=== PATIENT | female | born 1990 | race Caucasian/White ===

== ENCOUNTER 2017-08-15 12:23 | Emergency (ER) | payer SELFPAY ==
[~2017-08-15] VITALS: Ht 149.9 cm; Wt 90.7 kg
[2017-08-15 13:19] LABS: BILIRUBIN,URINE NEGATIVE (NEGATIVE); KETONES,URINE NEGATIVE (NEGATIVE); LEUKOCYTE ESTERASE ,URINE 1+ (NEGATIVE); NITRITE,URINE NEGATIVE (NEGATIVE); PH,URINE 7 (5-9); PROTEIN,URINE NEGATIVE (NEGATIVE); UROBILINOGEN,URINE NORMAL (NORMAL)
--- NOTE | 2017-08-15 13:29 | ED General ---
General Chief Complaint: Dizziness/Syncope Stated Complaint: DIZZY SPELLS,LINDSEY,FATIGUE Nursing Triage Note: AMB TO ROOM REPORTS SHE HAS BEEN DIZZY FOR 1 WEEK OFF AND ON WITH HEADACHE NO HEADACHE ON ADMIT. Nursing Sepsis Screen: No Definite Risk History of Present Illness Time Seen by Provider: 13:20 Initial Comments Patient reports intermittent dizziness for one week. She states she feels as though the room is spinning around her. She said no previous episodes of this in the past. She denies any ear pain. She's had occasional headaches over the last week but is not having a headache today. They're usually relieved when she takes Aleve. Timing/Duration: 5-6 Days Severity: Mild Associated Systoms: Denies Symptoms Allergies and Home Medications Allergies Coded Allergies: codeine (Verified Allergy, Unknown, 08/15/17) Home Medications No Active Prescriptions or Reported Meds Constitutional: see HPI, dizziness : No (negative hCG, urine) All Other Systems Reviewed Negative Unless Noted: Yes Past Sorbpdu-Cedkth-Qvuyuk Hx Patient Social History Alcohol Use: Denies Use Recreational Drug Use: No Smoking Status: Current Someday Smoker 2nd Hand Smoke Exposure: Yes Recent Foreign Travel: No Contact w/Someone Who Travel: No Recent Infectious Disease Expo: No Surgeries History of Surgeries: No Respiratory History of Respiratory Disorde: No Cardiovascular History of Cardiac Disorders: No Neurological History of Neurological Disord: No Genitourinary History of Genitourinary Disor: No Musculoskeletal History of Musculoskeletal Dis: No Endocrine History of Endocrine Disorders: No HEENT History of HEENT Disorders: No Cancer History of Cancer: No Psychosocial History of Psychiatric Problem: No Integumentary History of Skin or Integumenta: No Reviewed Nursing Assessment Reviewed/Agree w Nursing PMH: Yes Physical Exam Vital Signs Vital Sign - Last 12Hours 08/15/17 12:48 Temp 98.4 Pulse 100 Resp 18 B/P (MAP) 129/88 Pulse Ox 99 O2 Delivery Room Air Capillary Refill : Less Than 3 Seconds General Appearance: No Apparent Distress, WD/WN Eyes: Bilateral Eye Normal Inspection, Bilateral Eye PERRL, Bilateral Eye EOMI HEENT: PERRL/EOMI, TMs Normal, Normal ENT Inspection, Pharynx Normal Neck: Full Range of Motion, Normal Inspection, Non Tender, Supple Respiratory: Chest Non Tender, Lungs Clear, Normal Breath Sounds Cardiovascular: Regular Rate, Rhythm, No Edema Gastrointestinal: Normal Bowel Sounds, No Organomegaly, Non Tender, Soft Neurologic/Psychiatric: Alert, Oriented x3, No Motor/Sensory Deficits, Normal Mood/Affect Skin: Normal Color, Warm/Dry Lymphatic: No Adenopathy Progress/Results/Core Measures Results/Orders Lab Results Laboratory Tests Test 08/15/17 13:14 Range/Units Urine Color YELLOW Urine Clarity SLIGHTLY CLOUDY Urine pH 7 5-9 Urine Specific [place] 1.010 L 1.016-1.022 Urine Protein NEGATIVE NEGATIVE Urine Glucose (UA) NEGATIVE NEGATIVE Urine Ketones NEGATIVE NEGATIVE Urine Nitrite NEGATIVE NEGATIVE Urine Bilirubin NEGATIVE NEGATIVE Urine Urobilinogen NORMAL NORMAL MG/DL Urine Leukocyte Esterase 1+ H NEGATIVE Urine RBC (Auto) NEGATIVE NEGATIVE Urine RBC NONE /HPF Urine WBC 0-2 /HPF Urine Squamous Epithelial Cells >50 H /HPF Urine Renal Epithelial Cells NONE /HPF Urine Crystals PRESENT H /LPF Urine Amorphous Sediment MOD RYDER URATES H /LPF Urine Bacteria FEW H /HPF Urine Casts NONE /LPF Urine Mucus NEGATIVE /LPF Urine Culture Indicated NO My Orders Orders - VICKY QUIROS Urine Bedside (08/15/17 13:00) Ua Culture If Indicated (08/15/17 13:00) Meclizine Tablet (Antivert Tablet) (08/15/17 13:45) Medications Given in ED Current Medications Medications Dose Ordered Sig/Donte Route Start Time Stop Time Status Last Admin Dose Admin Meclizine HCl 25 mg ONCE ONCE PO 08/15/17 13:45 08/15/17 13:46 DC 08/15/17 13:58 25 MG Vital Signs/I&O Vital Sign - Last 12Hours 08/15/17 08/15/17 12:48 14:20 Temp 98.4 98.4 Pulse 100 100 Resp 18 18 B/P (MAP) 129/88 Pulse Ox 99 99 O2 Delivery Room Air Blood Pressure Mean: 102 Departure Impression Impression: Primary Impression: Vertigo Disposition: 01 HOME, SELF-CARE Condition: Stable Departure-Patient Inst. Decision time for Depature: 13:50 Referrals: NO,LOCAL PHYSICIAN (PCP/Family) Primary Care Physician Patient Instructions: Vertigo (a Type of Dizziness) (DC) Add. Discharge Instructions: Increase water intake, empty bladder frequently. Aleve one every 12 hours as needed for headache. Establish care with primary care provider for continued symptoms. Meclizine 25 mg every 8 hours, [id number] Return to emergency department for headache not relieved with Aleve, increased dizziness, fainting or seizure activity, or new problems. All discharge instructions reviewed with patient and/or family. Voiced understanding. Scripts No Active Prescriptions or Reported Meds Work/School Note: Local Medical Staff Listing VICKY QUIROS Aug 15, 2017 13:29
[2017-08-15] MEDS ORDERED: MECLIZINE 25 MG (ANTIVERT) TAB PO ONE (13:45)
[2017-08-15 13:52] LABS: SQUAMOUS EPITHELIAL CELL,UR >50 /HPF; WBC,URINE 0-2 /HPF
[2017-08-15 14:20] VITALS: BP 129/88
== END 2017-08-15 14:20 | disposition home or self-care (01) ==
LOC: ER 12:26
DX: R42 Dizziness and giddiness (principal); F17.210 Nicotine dependence, cigarettes, uncomplicated
CPT/HCPCS: 81000; 84703; 99283

== ENCOUNTER 2017-10-07 10:35 | Emergency (ER) | payer SELFPAY | END 2017-10-07 11:50 | disposition left against medical advice (07) | LOC: EDUNIT# 10:35 → ER 10:37 | DX: R69 Illness, unspecified (principal) ==

== ENCOUNTER → 2020-07-29 | Outpatient (CLI) | payer MEDICAID | LOC: LABNPT 06:00 | DX: Z11.59 Encounter for screening for other viral diseases (principal) | CPT/HCPCS: 87635 ==

== ENCOUNTER 2020-08-02 20:19 | Outpatient (CLI) | payer MEDICAID | END 2020-08-03 06:55 | disposition home or self-care (01) | LOC: SLEEP 20:19 | PROVIDERS: ATTEND Nurse Practitioner Community Health | DX: G47.33 Obstructive sleep apnea (adult) (pediatric) (principal); G47.10 Hypersomnia, unspecified | CPT/HCPCS: 95811 ==

== ENCOUNTER 2021-03-03 09:00 | Outpatient (RCR) | payer MEDICAID | END 2021-06-01 | disposition home or self-care (01) | LOC: CARD 09:00 | PROVIDERS: ATTEND Nurse Practitioner Family | DX: R00.2 Palpitations (principal) | CPT/HCPCS: 93225; 93226 ==

== ENCOUNTER 2021-05-30 09:00 | Outpatient (RCR) | payer MEDICAID ==
--- NOTE | 2021-06-30 15:06 | 30 Day Event Recorder ---
30-DAY EVENT RECORDER 30-DAY EVENT RECORDER DATE OF PROCEDURE: 05/30/2021-06/28/2021. INDICATION: Palpitations. PROCEDURE: A 30-day event recorder was obtained for a total of 4 days and 12 hours. 9 rhythm strips were presented for review. The study quality is compromised due to only 4-1/2 days of data. RESULTS: 1. Baseline sinus rhythm with an average heart rate of 70 bpm, ranging from 50- 147 bpm with occasional, isolated premature supraventricular and premature ventricular complexes each representing 1% of the total recording time. 2. There were no pauses exceeding 2 seconds in duration. 3. There were 5 patient events that correlated to sinus rhythm with heart rates ranging from 63-71 bpm with isolated premature supraventricular complexes. IMPRESSION: 1. This is a 30-day event monitor that was obtained for a total of 4 days and 12 hours. 2. Baseline sinus rhythm with an average heart rate of 70 bpm, ranging from 50- 147 bpm with occasional, isolated premature supraventricular and premature ventricular complexes each representing 1% of the total recording time. 3. There were 5 patient events that correlated to sinus rhythm with heart rates ranging from 63-71 bpm with isolated premature supraventricular complexes. The patient may be sensing some of the supraventricular ectopy. Certain portions of this document may have been dictated utilizing voice r ecognition technology. Inherent to this technology, typographical and grammatical errors may exist. As much as I am diligent to identify and correct these mistakes, some errors may remain in the document. JUHI LAZO JR, MD Jun 30, 2021 15:06
== END 2021-08-28 | disposition home or self-care (01) ==
LOC: CARD 09:00
PROVIDERS: ATTEND Internal Medicine Cardiovascular Disease
DX: R00.2 Palpitations (principal); I07.1 Rheumatic tricuspid insufficiency
CPT/HCPCS: 93270; 93306